=== PATIENT | female | born 1990 | race African-American/Black ===

== ENCOUNTER 2020-03-04 13:37 | Emergency (ER) | payer MEDICAID ==
[~2020-03-04] VITALS: Ht 162.6 cm; Wt 88.0 kg
[2020-03-04 13:52] VITALS: BP 113/67
[2020-03-04] MEDS ORDERED: Lidocaine 1% MPF 10mg/ml 5ml INJ ONE (14:00)
--- NOTE | 2020-03-04 14:00 | NUR ---
ED Nurse Note: Pt walked into ED w/ c/o possible exposure to STD within the last week. Pt is alert and orientedx4, ambulatory. Pt denies pain, itching.
--- NOTE | 2020-03-04 14:10 | Emergency Room Report ---
History of Present Illness General Chief Complaint: Female Urogenital Problems Source: Patient Present Illness HPI 30 YO Female presents to the ED c/o recent exposure to G & C. Pt. reports unprotected intercourse with a person who later tested positive. Pt. denies vaginal d/c, genital lesions, abdominal pain, swollen tender lymph nodes or rashes. Pt. denies joint pain. She denies or suspicion of . She denies dysuria, hematuria or frequency. She denies pain. Denies N/V. Pt. requests medication for yeast infection as she habitually gets vaginitis following abx treatments. Allergies: Coded Allergies: PROPOFOL (Verified Allergy, Unknown, 03/04/20) COVID-19 Screening Contact w/high risk pt: No Recent Travel to affected area: No Experienced COVID-19 symptoms?: No Patient History Past Medical History: see triage record Past Surgical History: none Pertinent Family History: none Last Menstrual Period: 03/02/20 Now: No : 4 Para: 2 Reviewed Nursing Documentation: PMH: Agreed; PSxH: Agreed Nursing Documentation-PMH Past Medical History: No Stated History Review of Systems All Other Systems: negative except mentioned in HPI Physical Exam Vital Signs Date Time Temp Pulse Resp B/P (MAP) Pulse Ox O2 Delivery O2 Flow Rate FiO2 03/04/20 13:45 98.2 82 16 113/67 (82) 98 Room Air Sp02 EP Interpretation: reviewed, normal General Appearance: no apparent distress, alert, GCS 15, non-toxic Head: normocephalic, atraumatic Eyes: bilateral eye normal inspection, bilateral eye PERRL ENT: hearing grossly normal, normal voice Neck: full range of motion Respiratory: lungs clear, normal breath sounds, speaking full sentences Cardiovascular #1: regular rate, rhythm Gastrointestinal: normal bowel sounds, non tender, soft, non-distended, no guarding Genitourinary: normal inspection, no CVA tenderness Musculoskeletal: back normal, normal range of motion, gait/station normal, non- tender Neurologic: alert, motor strength/tone normal, oriented x3, sensory intact, responsive, speech normal Psychiatric: judgement/insight normal Lymphatic: no adenopathy Medical Decision Making PA Attestation Dr. Montenegro is my supervising Physician whom patient management has been discussed with. Diagnostic Impression: Primary Impression: Contact with or exposure to venereal diseases ER Course 30 YO Female presents to the ED c/o recent exposure to G & C. Pt. reports unprotected intercourse with a person who later tested positive. Pt. denies vaginal d/c, genital lesions, abdominal pain, swollen tender lymph nodes or rashes. Pt. denies joint pain. She denies or suspicion of . She denies dysuria, hematuria or frequency. She denies pain. Denies N/V. Pt. requests medication for yeast infection as she habitually gets vaginitis following abx treatments. Ddx considered but are not limited to UTi ,PID, STI, G & C, trichomonas, Vaginitis, cervicitis, cellulitis. Vital signs: are WNL, pt. is afebrile H&PE are most consistent with vaginitis ORDERS: - Urine Hcg: Negative ED INTERVENTIONS: -250mg Rocephin IM -Azithromycin 1g PO DISCHARGE: At this time pt. is stable for d/c to home. Will provide printed patient care instructions, and any necessary prescriptions. Care plan and follow up instructions have been discussed with the patient prior to discharge. Labs Test 03/04/20 14:21 Urine HCG, Qualitative Negative (NEGATIVE) Last Vital Signs Date Time Temp Pulse Resp B/P (MAP) Pulse Ox O2 Delivery O2 Flow Rate FiO2 03/04/20 13:52 98.2 74 16 113/67 98 Room Air Disposition: HOME, SELF-CARE Condition: Stable Scripts Fluconazole* (DIFLUCAN*) 100 Mg Tablet 100 MG ORAL DAILY, #2 TAB Prov: Aparna Bender 03/04/20 Patient Instructions: Sexually Transmitted Disease, [id number] Additional Instructions: Take medications as directed. Follow up with a [facility] within 3 days, even if your symptoms have resolved. * * Return sooner to ED if new symptoms occur, or current symptoms become worse. - Please note that this Emergency Department Report was dictated using [employer] reporting specialist technology software, occasionally this can lead to erroneous entry secondary to interpretation by the dictation equipment. Aparna Bender Mar 04, 2020 14:10
[2020-03-04] MEDS ORDERED: DIFLUCAN100 MG ORAL (14:12)
[2020-03-04] MEDS ORDERED: Azithromycin 250mg tab ORAL ONE (14:15)
[2020-03-04 15:06] VITALS: BP 115/72
--- NOTE | 2020-03-04 15:09 | NUR ---
ER DISCHARGE NOTE: Patient is cleared to be discharged per ERMD, pt is aox4, on room air, with stable vital signs. pt was given dc and prescription instructions, pt was able to verbalize understanding, pt id band removed. pt is able to ambulate with steady gait. pt took all belongings.
== END 2020-03-04 15:09 | disposition home or self-care (01) ==
LOC: EMR 14:59
DX: Z20.828 Contact with and (suspected) exposure to other viral communicable diseases (principal); Z88.8 Allergy status to other drugs, medicaments and biological substances
CPT/HCPCS: 81025; 96372; 96374; J0696; Q0144; Z7502; 99284